=== PATIENT | female | born 1965 | race Caucasian/White ===

== ENCOUNTER 2018-09-18 10:07 | Emergency (ER) | payer OTHER ==
[2018-09-18 10:48] LABS: ABS Basophils 0.1 10^3/ul (0-0.2); ABS Eosinophils 0.1 10^3/ul (0-0.6); ABS Lymphocytes 2.9 10^3/ul (1.0-4.8); ABS Monocytes 0.5 10^3/ul (0-0.8); ABS Neutrophils 5.4 10^3/ul (1.5-7.7); Eosinophil % 1.5 %; Hematocrit 39 % (35-47); Hemoglobin 13.3 g/dL (12.0-16.0); Lymphocyte % 32.3 %; Mean Corpuscular HGB Conc 35 g/dL (31-36); Mean Corpuscular Hemoglobin 33 pg (27-31); Mean Corpuscular Volume 97 fL (80-97); Mean Platelet Volume 8.5 fL (7.4-10.4); Nucleated Red Blood Cells % 0.1; Platelet Count 233 10^3/uL (150-450); Red Blood Count 3.99 10^6 /uL (3.70-4.87); Red Cell Distribution Width 14 % (10-15)
[2018-09-18 11:05] LABS: Albumin 4.4 g/dL (3.2-5.2); Albumin/Globulin Ratio 1.4 (1-3); BUN/Creatinine Ratio 18.5 (8-20); Calcium 9.9 mg/dL (8.6-10.3); EGFR African American 77.6 (>60); EGFR Non-African American 64.1 (>60); Globulin 3.1 g/dL (2-4); HDL Cholesterol 41.8 mg/dL; Potassium 3.9 mmol/L (3.5-5.0); Total Bilirubin 0.3 mg/dL (0.2-1.0); Total Protein 7.5 g/dL (6.4-8.9)
[2018-09-18 11:08] LABS: Activated Partial Thrombo Time 33.1 seconds (26.0-38.0); INR 0.91 (0.82-1.09)
--- NOTE | 2018-09-18 11:36 | ED ---
Neurological HPI - HPI Summary HPI Summary: This pt is a 53 Y/O F presenting to [facility] with her and a CC of a neurological defect which started this morning when she woke up. A code marilee was called at 1015 but after a head a CT the matt hunt was called off at 1045. She stated that she woke up this morning with a rash and swelling to the L side of her face. 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 She denies any CP, fevers, numbness, V/N, SOB, headaches, and LE weakness and numbness. She also stated that her face has begun to swell and has increased in size since the onset. She stated no aggravating or alleviating symptoms. She has a pertinent PMHx of hypertension, hyperthyroidism, A-FIB, and a FHx of uterine cancer. 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 Negative: Headache, Pain, Nausea/Vomiting , Fever, Chest Pain, Shortness of Breath TPA Considered: No - Pt was not a TPA canidate due to the lack of stroke like symptoms. - Allergy/Home Medications Allergies/Adverse Reactions: Allergies Allergy/AdvReac Type Severity Reaction Status Date / Time No Known Allergies Allergy Verified 09/18/18 10:17 Home Medications: Home Medications Aspirin EC TAB* [Ecotrin EC Low Dose 81 MG*] 81 mg PO DAILY 09/18/18 [History Confirmed 09/18/18] Atorvastatin* [Lipitor 80 MG*] 1 tab PO DAILY 09/18/18 [History Confirmed ] Chlorthalidone 1 tab PO DAILY 09/18/18 [History Confirmed 09/18/18] Metoprolol Tartrate TAB* [Lopressor TAB*] 25 mg PO BID 09/18/18 [History Confirmed 09/18/18] Potassium Chlor TAB* [Klor Con ER TAB*] 20 meq PO DAILY 09/18/18 [History Confirmed 09/18/18] amLODIPine TAB* [Norvasc 5 mg TAB*] 10 mg PO DAILY 09/18/18 [History Confirmed 09/18/18] PMH/Surg Hx/FS Hx/Imm Hx Previously Healthy: Yes Cardiovascular History: Reports: Hx Atrial Fibrillation, Hx Hypertension Respiratory History: Denies: Hx Asthma Sensory History: Denies: Hx Contacts or Glasses Opthamlomology History: Denies: Hx Contacts or Glasses - Surgical History Surgical History: Yes Surgery Procedure, Year, and Place: Hysterectomy: 2008 at [facility]. Apedectomy: 1995 - Immunization History Immunizations Up to Date: Yes Infectious Disease History: No Infectious Disease History: Denies: Traveled Outside the [place] in Last 30 Days - Family History Known Family History: Positive: Cardiac Disease - Grandmother paternal, Diabetes - Grandmother paternal, Other - CA, uterine cancer - Social History Occupation: Employed Full-time Lives: With Family Alcohol Use: Occasionally Alcohol Amount: 1 glass of wine Hx Substance Use: No Hx Tobacco Use: Yes Smoking Status (MU): Heavy Every Day Tobacco Smoker Type: Cigarettes Amount Used/How Often: 1/2 PPD Review of Systems Negative: Fever Negative: Chest Pain Negative: Shortness Of Breath Negative: Abdominal Pain, Vomiting, Nausea Positive: Rash - L side of her face and neck Positive: Weakness - L sided facial and L sided neck , Numbness - L sided facial and L sided neck . Negative: Headache All Other Systems Reviewed And Are Negative: Yes Physical Exam - Summary Physical Exam Summary: Constitutional: Well-developed, Well-nourished, Alert. (-) Distressed Skin: Warm, Dry, erythematous blanching rash to her L neck HENT: Normocephalic; Atraumatic Eyes: Conjunctiva normal Neck: Musculoskeletal ROM normal neck. (-) JVD, (-) Nuchal rigidity Cardio: Rhythm regular, rate normal, Heart sounds normal; Intact distal pulses; Radial pulses are 2+ and symmetric. (-) Murmur Pulmonary/Chest wall: Effort normal. (-) Respiratory distress, (-) Wheezes, (-) Rales Abd: Soft. (-) Tenderness, (-) Distension, (-) Guarding, (-) Rebound Musculoskeletal: (-) Edema Lymph: (-) Cervical adenopathy Neuro: Alert, PERRL, Oriented x3, Strength normal. SILT aside from L face, Strength 5/5 BUE and BLE, (-) Dysmetria, (-) Nystagmus, ambulates w steady gait. Mild L nasal labial fold flattening otherwise CN 2-12 grossly intact. Psych: Mood and affect Normal NIH: 1, minor facial paresis Triage Information Reviewed: Yes Vital Signs On Initial Exam: Initial Vitals Temp Pulse Resp BP Pulse Ox 97.8 F 80 18 196/126 100 09/18/18 10:08 09/18/18 10:08 09/18/18 10:08 09/18/18 10:08 09/18/18 10:08 Vital Signs Reviewed: Yes Diagnostics - Vital Signs Vital Signs Temp Pulse Resp BP Pulse Ox 09/18/18 10:08 97.8 F 80 18 196/126 100 - Laboratory Lab Results: Lab Results 09/18/18 09/18/18 09/18/18 Range/Units 10:34 10:34 10:34 WBC 9.0 (3.5-10.8) 10^3/uL RBC 3.99 (3.70-4.87) 10^6 /uL Hgb 13.3 (12.0-16.0) g/dL Hct 39 (35-47) % MCV 97 (80-97) fL MCH 33 H (27-31) pg MCHC 35 (31-36) g/dL RDW 14 (10-15) % Plt Count 233 (150-450) 10^3/uL MPV 8.5 (7.4-10.4) fL Neut % (Auto) 59.3 % Lymph % (Auto) 32.3 % Mckenzie % (Auto) 5.6 % Eos % (Auto) 1.5 % Baso % (Auto) 1.3 % Absolute Neuts (auto) 5.4 (1.5-7.7) 10^3/ul Absolute Lymphs (auto) 2.9 (1.0-4.8) 10^3/ul Absolute Monos (auto) 0.5 (0-0.8) 10^3/ul Absolute Eos (auto) 0.1 (0-0.6) 10^3/ul Absolute Basos (auto) 0.1 (0-0.2) 10^3/ul Absolute Nucleated RBC 0.0 10^3/ul Nucleated RBC % 0.1 INR (Anticoag Therapy) 0.91 (0.82-1.09) APTT 33.1 (26.0-38.0) seconds Sodium 139 (135-145) mmol/L Potassium 3.9 (3.5-5.0) mmol/L Chloride 107 (101-111) mmol/L Carbon Dioxide 25 (22-32) mmol/L Anion Gap 7 (2-11) mmol/L BUN 17 (6-24) mg/dL Creatinine 0.92 (0.51-0.95) mg/dL Est GFR ( Amer) 77.6 (>60) Est GFR (Non-Af Amer) 64.1 (>60) BUN/Creatinine Ratio 18.5 (8-20) Glucose 106 H (70-100) mg/dL POC Glucose (mg/dL) (70-100) mg/dL Calcium 9.9 (8.6-10.3) mg/dL Total Bilirubin 0.30 (0.2-1.0) mg/dL AST 14 (13-39) U/L ALT 10 (7-52) U/L Alkaline Phosphatase 81 (34-104) U/L Troponin I 0.00 (<0.04) ng/mL Total Protein 7.5 (6.4-8.9) g/dL Albumin 4.4 (3.2-5.2) g/dL Globulin 3.1 (2-4) g/dL Albumin/Globulin Ratio 1.4 (1-3) Triglycerides 127 mg/dL Cholesterol 153 mg/dL LDL Cholesterol 86 mg/dL HDL Cholesterol 41.8 mg/dL Vitamin B12 Pending TSH Pending Free T4 Pending 09/18/18 Range/Units 10:36 WBC (3.5-10.8) 10^3/uL RBC (3.70-4.87) 10^6 /uL Hgb (12.0-16.0) g/dL Hct (35-47) % MCV (80-97) fL MCH (27-31) pg MCHC (31-36) g/dL RDW (10-15) % Plt Count (150-450) 10^3/uL MPV (7.4-10.4) fL Neut % (Auto) % Lymph % (Auto) % Mckenzie % (Auto) % Eos % (Auto) % Baso % (Auto) % Absolute Neuts (auto) (1.5-7.7) 10^3/ul Absolute Lymphs (auto) (1.0-4.8) 10^3/ul Absolute Monos (auto) (0-0.8) 10^3/ul Absolute Eos (auto) (0-0.6) 10^3/ul Absolute Basos (auto) (0-0.2) 10^3/ul Absolute Nucleated RBC 10^3/ul Nucleated RBC % INR (Anticoag Therapy) (0.82-1.09) APTT (26.0-38.0) seconds Sodium (135-145) mmol/L Potassium (3.5-5.0) mmol/L Chloride (101-111) mmol/L Carbon Dioxide (22-32) mmol/L Anion Gap (2-11) mmol/L BUN (6-24) mg/dL Creatinine (0.51-0.95) mg/dL Est GFR ( Amer) (>60) Est GFR (Non-Af Amer) (>60) BUN/Creatinine Ratio (8-20) Glucose (70-100) mg/dL POC Glucose (mg/dL) 95 (70-100) mg/dL Calcium (8.6-10.3) mg/dL Total Bilirubin (0.2-1.0) mg/dL AST (13-39) U/L ALT (7-52) U/L Alkaline Phosphatase (34-104) U/L Troponin I (<0.04) ng/mL Total Protein (6.4-8.9) g/dL Albumin (3.2-5.2) g/dL Globulin (2-4) g/dL Albumin/Globulin Ratio (1-3) Triglycerides mg/dL Cholesterol mg/dL LDL Cholesterol mg/dL HDL Cholesterol mg/dL Vitamin B12 TSH Free T4 Result Diagrams: 09/18/18 10:34 09/18/18 10:34 Lab Statement: Any lab studies that have been ordered have been reviewed, and results considered in the medical decision making process. - CT Brain CT CT Interpretation Completed By: Radiologist Summary of CT Findings: NO EVIDENCE FOR GROSS ACUTE INFARCT, MASS EFFECT OR HEMORRHAGE. ED physician has reviewed this report. - EKG 1038 Cardiac Rate: NL - 64 BPM EKG Rhythm: Sinus Rhythm ST Segment: Normal Ectopy: None Summary of EKG Findings: EKG at 1038 reveals normal sinus rhythm 64 BPM, nml axis, nml intervals. No STEMI. No acute changes. Interpreted by Dr. Yañez at 1045 09/18/18. 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 Non-Paretic Hand: Both Correctly Best Gaze (Only Horizontal Eye Movement): Normal Visual Field Testing: No Visual Loss Facial Paresis-Pt to Smile & Close Eyes or Grimace Symmetry: Minor Paralysis Motor Function - Right Arm: No Drift-Holds 10 Seconds Motor Function - Left Arm: No Drift-Holds 10 Seconds Motor Function - Right Leg: No Drift-Holds 10 Seconds Motor Function - Left Leg: No Drift-Holds 10 Seconds Limb Ataxia-Must be out of Proportion to Weakness Present: Absent Sensory (Use Pinprick to Test Arms/Legs/Trunk/Face): Normal Best Language (Describe Picture, Name Items): No Aphasia Dysarthria (Read Several Words): Normal Extinction and Inattention: No Abnormality Total Score: 1 Re-Evaluation - Re-Evaluation First Eval Re-Evaluation Time: 12:26 Change: Unchanged Comment: Pt states that she still has tingling on her face but no new symptoms. Will discuss with Dr. Gregory. Course/Dx - Course Course Of Treatment: 53-year-old female with a history of atrial fibrillation, hypertension presents with left facial numbness and rash since this morning. NIH stroke scale of 1. - CT head, reassses.Dr Pope at bedside for evaluation. DDx includes TIA, CVA, early Moody's palsy - Diagnoses Provider Diagnoses: Moody's palsy - Physician Notifications Discussed Care Of Patient With: Zoran Gregory Time Discussed With Above Provider: 12:35 Instructed by Provider To: Other - Dr. Gregory, Neurology, was contacted who stated that the pt can be discharged with a Dx of Moody's Palsy but to return for any worsening symptoms. Send home on prednisone and valtrex. patient in agreement Discharge - Sign-Out/Discharge Documenting (check all that apply): Patient Departure - discharge Patient Received Moderate/Deep Sedation with Procedure: No - Discharge Plan Condition: Stable Disposition: HOME Prescriptions: predniSONE TAB* [Deltasone TAB*] 50 mg PO DAILY 7 Days #7 tab ValACYclovir (*) [Valtrex 1 GM(*)] 1 gm PO TID 7 Days #21 tab Patient Education Materials: Moody Palsy (ED) Referrals: Franchesca Gallagher MD [Primary Care Provider] - 2 Days Additional Instructions: You were seen in the emergency department for left facial tingling. Your CT brain did not show any evidence of stroke. 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 Please take valacyclovir and prednisone for 1 week Return for worsening symptoms, new numbness or tingling, weakness, or if you're concerned. If any studies were not completed at the time of discharge you will be called with the relevant results. Please follow up with your primary care doctor in next 2-3 days and return to emergency department for worsening or concerning symptoms. - Billing Disposition and Condition Condition: STABLE Disposition: Home - Attestation Statements Document Initiated by Scribe: Yes Documenting Scribe: Jeffery Dick Provider For Whom Sergio is Documenting (Include Credential): Lissette Yañez MD Scribe Attestation: Jeffery Rodriguez, scribed for Lissette Yañez MD on 09/18/18 at 1522. Scribe Documentation Reviewed: Yes Provider Attestation: The documentation as recorded by the Jeffery walker accurately reflects the service I personally performed and the decisions made by , Lissette Yañez MD Status of Scribe Document: Viewed
[2018-09-18 12:17] LABS: TSH (Thyroid Stimulating Horm) 1.32 mcIU/mL (0.34-5.60)
[2018-09-18 12:19] LABS: Free T4 0.9 ng/dL (0.61-1.12)
[2018-09-18 12:46] LABS: Urine Appearance Clear; Urine Bilirubin Negative (Negative); Urine Blood Negative (Negative); Urine Color Colorless; Urine Glucose Negative (Negative); Urine Ketones Negative (Negative); Urine Nitrite Negative (Negative); Urine Protein Negative (Negative); Urine Specific Gravity 1.004 (1.010-1.030); Urine Urobilinogen Negative (Negative)
[2018-09-18 12:50] VITALS: BP 152/70
--- NOTE | 2018-09-18 13:30 | CONS ---
NEUROLOGY CONSULTATION NOTE: DATE OF CONSULT: 09/18/18 - EMERGENCY DEPT Consultation was obtained by activating the code alfaro. REASON FOR CONSULT: Facial swelling. CHIEF COMPLAINT: Numbness and swelling of the left-side of the face with rash near the facial and neck region. HISTORY OF PRESENT ILLNESS: Ms. Ilene Govea is a 53-year-old female with history of atrial fibrillation, on aspirin therapy, hypertension, dyslipidemia, tobacco abuse, who presented to [facility] today after waking up with symptoms of swelling of the left-sided face. The patient was last known well at 9 p.m. on 09/17/18. She woke up at 5:30 a.m. with the symptoms of facial swelling and slight numbness on the left-side of the face. She also noticed a rash around the left neck region. She denied any vesicles. She denied any exposure to deer, but she does have many pets at home. She denied any hyperacusis, change in taste, or eye irritation or weakness on closure. The patient denied any weakness in the arms or numbness in the extremities. She denied any slurred speech or swallowing difficulty. She stated that she thought of not coming to the ER due to her mild symptoms. NIH stroke scale of 1 for possible mild facial asymmetry with loss of nasolabial fold on the left, otherwise she has no other abnormalities. CT of the head was obtained urgently and showed no evidence of acute intracranial abnormality. PAST MEDICAL HISTORY: Hypertension, dyslipidemia, atrial fibrillation, currently in sinus rhythm and is on aspirin. Positive HPV, tobacco use. PAST SURGICAL HISTORY: Hysterectomy. MEDICATIONS: Aspirin 81 mg daily. ALLERGIES: No known drug allergies. FAMILY HISTORY: No family history of stroke or seizures. SOCIAL HISTORY: The patient is . She has 4 children. She lives with her . She smokes 1 pack per day for 30 years. She denied any recreational drug use. She drinks occasionally with friends and family. REVIEW OF SYSTEMS: A 14-point review of systems was obtained and otherwise negative except for what was mentioned in the HPI. PHYSICAL EXAMINATION: Vitals: Blood pressure 111/68, pulse of 70, respiratory rate of 16. She is not complaining of any pain. General: Well-nourished, well - developed female, in no acute distress. Head: Atraumatic, normocephalic without any obvious abnormality. Eyes: Conjunctivae/corneas are clear. Neck is supple and symmetrical with no carotid bruits. Cardiac: Regular rate and rhythm with normal S1, S2. No murmurs. No arrhythmia. Respiratory: Clear to auscultation bilaterally. No wheezing or rhonchi. Extremities: Normal range of motion with no cyanosis. No hammertoes or high arches. Skin: Mild erythematous rash developing in the left neck region. There is no evidence of any vesicles. Otoscopic examination showed no evidence of vesicular rash in the external auditory meatus. Psych: Broad affect, normal mood. Easy to establish rapport. Neurological Examination: Mental Status: Awake, alert, oriented to person, place, time, and general circumstances. Speech and language including expression, comprehension, and repetition were assessed and found to be normal. NIH stroke scale is 1. Cranial Nerves: Pupils are equal, round, and reactive to light, extraocular muscles intact. Marked weakness to eye closure on the left. Normal symmetric forehead frowning. No nystagmus. Normal sensation to light touch bilaterally. Tongue is symmetric and midline with no atrophy or fasciculation. Motor Examination: 5/5 strength in the upper and lower extremities bilaterally. Normal tone and bulk throughout. Reflexes 2+ throughout the biceps, triceps, and brachioradialis bilaterally, 2+ at the knees and ankles bilaterally. Downgoing plantar responses bilaterally. Sensation is intact to light touch throughout. Normal vibration in the great toes bilaterally. Normal proprioception at the great toes bilaterally. Coordination: Normal [id number] and [id number] testing. Gait: Normal stance and posture. No ataxia. DIAGNOSTIC STUDIES/LAB DATA: Labs are pending. IMPRESSION AND RECOMMENDATION: Ms. Ilene Govea is a 53-year-old female with history of hypertension, dyslipidemia, atrial fibrillation on aspirin therapy, who presented with new onset facial swelling and subjective numbness on the left side of the face. On examination, the patient has evidence of subtle weakness to eye closure on the left, swelling of the left-sided face and an erythematous rash on the left lower jaw as well as the neck region. CT of the head showed no evidence of acute intracranial abnormality. NIH stroke scale was 1 for questionable facial asymmetry and flattening of the nasolabial fold on the left. The differential diagnosis here is mostly a lower motor neuron early findings of facial weakness. I do not suspect stroke in this case given that she has no other associated symptoms of slurred speech or extremity paresthesias/weakness. She has no sensory abnormality on examination, but has a feeling of abnormal sensation on the left side of face as well as heaviness. Given the rash around the neck region, the differential needs to include Moody's palsy due to early zoster, lyme disease. We will also check for vitamin deficiencies. RECOMMENDATION: I do recommend starting the patient on valacyclovir 1000 mg every 8 hours for 7 days as well as prednisone 60 mg daily for 7 days, this is for the treatment of presumed early Moody's palsy. I also recommend obtaining the following labs: TSH, free T4, lyme titers, angiotensin converting enzyme, and B12. Please use utilizing artificial eye drops as well as eye ointment before going to sleep if she develops any weakness in eye closure. I advised the patient to come back to the ER immediately if she develops any new neurological symptoms such as slurring of speech, worsening of the facial droop , or focal weakness. If she comes back with only worsening of facial droop then would confirm the progression of Moody's palsy. Other differential diagnosis such as abscess formation in that region was excluded as she does not have any tenderness to palpation nor did she have any abnormalities on the CT of the head. I discussed the treatment plan with the patient as well as the ER staff. The patient does not need to be admitted for further evaluation unless she develops any new neurological deficits. Again, I do not suspect the patient is having a stroke or TIA. [id number]/[facility] #: [id number] MTDD
--- NOTE | 2018-09-20 14:20 | PN ---
Progress Note - Progress Note Date of Service: 09/18/18 Note: Pt. seen in ER 09/18 for potential early calero's palsy. Lyme PCR coming back positive. Attempted to call pt. today at 1417 with no answer, message left to return call. Will send letter. Rx for doxy BID x 21 days sent to pharmacy.
== END 2018-09-18 12:49 | disposition home or self-care (01) ==
LOC: ED 10:07
DX: G51.0 Bell's palsy (principal); I10 Essential (primary) hypertension; E05.90 Thyrotoxicosis, unspecified without thyrotoxic crisis or storm; I48.91 Unspecified atrial fibrillation; F17.210 Nicotine dependence, cigarettes, uncomplicated; Z79.82 Long term (current) use of aspirin; Z79.899 Other long term (current) drug therapy
CPT/HCPCS: 36415; 70450; 80053; 80061; 81003; 82164; 82607; 84439; 84443; 84484; 85025; 85610; 85730; 86617; 86618; 93005; 99283